=== PATIENT | female | born 1955 | race Caucasian/White ===

== ENCOUNTER 2022-02-06 07:18 | Outpatient (CLI) | payer OTHER | END 2022-02-06 15:57 | disposition home or self-care (01) | LOC: TOM 07:18 | DX: R51.9 Headache, unspecified (principal) ==

== ENCOUNTER 2022-06-04 10:59 | Outpatient (CLI) | payer OTHER | END 2022-06-04 11:04 | disposition home or self-care (01) | LOC: NUCLEAR 10:59 | DX: M85.9 Disorder of bone density and structure, unspecified (principal) ==